=== PATIENT | female | born 1935 | race Caucasian/White ===

== ENCOUNTER → 2017-01-11 | Outpatient (CLI) | payer MEDICARE ==
[~2017-01-11] MED LIST: ASPIRIN CHEWABL81 M1 PO; FLAGYL500 MG PO; GLUCOPHAGE500 MG PO; LISINOPRIL; LOPRESSOR25 MG PO; METFORMIN PO; MEVACOR40 MG PO; Milk Of Magnesia,MOM PO; TOPROL; Tylenol Regular Stre PO; ULTRAM50 MG PO; VITAMIN D PO; VITAMIN D2000 INTUN PO; Zestoretic,Prinzide PO
== END | disposition home or self-care (01) ==
LOC: CDC 11:05
DX: I44.0 Atrioventricular block, first degree (principal); R00.1 Bradycardia, unspecified; M79.641 Pain in right hand; M67.431 Ganglion, right wrist; R22.31 Localized swelling, mass and lump, right upper limb
CPT/HCPCS: 93000